=== PATIENT | male | born 1945 | race African-American/Black ===

== ENCOUNTER 2020-08-16 09:18 | Emergency (ER) | payer MEDICARE, MEDICAID ==
[~2020-08-16] VITALS: Ht 182.9 cm; Wt 86.0 kg
[2020-08-16 10:00] VITALS: BP 137/80
[2020-08-16] MEDS ORDERED: POLY119P2 PO (11:18)
== END 2020-08-16 11:37 | disposition home or self-care (01) ==
LOC: ER 09:18
DX: K59.00 Constipation, unspecified (principal); Z88.0 Allergy status to penicillin; Z94.4 Liver transplant status; Z86.19 Personal history of other infectious and parasitic diseases
CPT/HCPCS: 72170; 74176; 99284

== ENCOUNTER 2021-06-17 16:12 | Emergency (ER) | payer MEDICARE, MEDICAID ==
[~2021-06-17] VITALS: Ht 182.9 cm; Wt 87.0 kg
[~2021-06-17 16:12] MED LIST: POLY119P2 PO
[2021-06-17 18:59] VITALS: BP 163/127
[2021-06-17] MEDS ORDERED: HYDROCODONE/ACETAMINOPHEN 5/325MG TABLET PO ONE (19:00)
[2021-06-17] MEDS ORDERED: HYDR-4001 MT (20:31)
== END 2021-06-17 20:41 | disposition home or self-care (01) ==
LOC: ER 16:12
DX: M79.604 Pain in right leg (principal); M79.601 Pain in right arm; R51.9 Headache, unspecified; I10 Essential (primary) hypertension; V85 Occupant of special construction vehicle injured in transport accident; Y93.89 Activity, other specified; Y92.9 Unspecified place or not applicable; Z88.0 Allergy status to penicillin; Z93.3 Colostomy status; Z94.4 Liver transplant status; Z85.05 Personal history of malignant neoplasm of liver; Z98.890 Other specified postprocedural states
CPT/HCPCS: 71045; 72170; 73552; 73590; 99284